=== PATIENT | female | born 1945 | race Caucasian/White ===

== ENCOUNTER → 2018-06-11 | Outpatient (CLI) | payer OTHER, MEDICARE ==
[~2018-06-11] MED LIST: GADOBUTROL 10 ML VIAL IVP ONE
== END ==
LOC: FIMAGING 12:56
PROVIDERS: ATTEND Internal Medicine Endocrinology, Diabetes & Metabolism
DX: D35.2 Benign neoplasm of pituitary gland (principal); E23.6 Other disorders of pituitary gland
CPT/HCPCS: 70553; A9585; 82565-PO

== ENCOUNTER → 2018-09-17 | Outpatient (CLI) | payer OTHER, MEDICARE | LOC: FIMAGING 08:41 | PROVIDERS: ATTEND Neurological Surgery | DX: D35.2 Benign neoplasm of pituitary gland (principal) | CPT/HCPCS: 70553; A9585; 82565-PO ==